=== PATIENT | male | born 1980 | race Caucasian/White ===

== ENCOUNTER 2021-10-05 08:27 | Inpatient (IN) | payer SELFPAY ==
[~2021-10-05] VITALS: Ht 177.8 cm; Wt 92.7 kg
[2021-10-05 09:39] LABS: BASOPHILS % 0.2 % (0.0-2.0); EOSINOPHILS % 0.1 % (0.0-5.0); HEMATOCRIT. 41.3 % (42.0-52.0); HEMOGLOBIN. 14.4 g/dL (14.0-18.0); LYMPHOCYTES % 9.7 % (20.0-50.0); MEAN CORPUSCULAR HEMOGLOBIN 30.3 pg (28.0-32.0); MEAN CORPUSCULAR VOLUME 86.7 fL (80.0-94.0); MEAN PLATELET VOLUME 7.2 fl (7.4-10.4); MONOCYTES % 5.4 % (2.0-8.0); NEUTROPHILS % 84.6 % (40.0-76.0); PLATELET 282 x1000/uL (130-400); RED BLOOD CELL COUNT 4.76 mill/uL (4.7-6.1); RED CELL DISTRIBUTION WIDTH 13.3 % (11.6-14.6)
[2021-10-05 09:43] LABS: CLARITY URINE TURBID (CLEAR); COLOR URINE RED (YELLOW); KETONES URINE NEGATIVE (NEGATIVE); LEUKOCYTE ESTERASE URINE 2+ (NEGATIVE); NITRITE URINE POSITIVE (NEGATIVE); OCCULT BLOOD URINE 2+ (NEGATIVE); PROTEIN URINE 2+ (NEGATIVE); SPECIFIC GRAVITY URINE 1.023 (1.005-1.030); UROBILINOGEN URINE 0.2 E.U./dL (0.2-1.0)
[2021-10-05 09:51] LABS: CHLORIDE 107 mEq/L (98-107)
[2021-10-05] MEDS ORDERED: NITR100C PO (10:33)
[2021-10-05] MEDS ORDERED: ACETAMINOPHEN WITH CODEINE 300/30MG TABLET PO ONE (11:15)
[2021-10-05] MEDS ORDERED: LEVOFLOXACIN 250MG TABLET PO ONE (12:15)
[2021-10-05] MEDS ORDERED: ACETAMINOPHEN 325MG TABLET PO PRN ×2 (14:00)
[2021-10-05] MEDS ORDERED: LEVOFLOXACIN 250MG TABLET PO NR (14:00)
[2021-10-05] MEDS ORDERED: GUAIFENESIN 200MG/10ML SUGAR FREE UDC PO PRN (14:00)
[2021-10-05] MEDS ORDERED: MAGNESIUM/ALUMINUM HYDROXIDE/SIMETHICONE 30ML UDC PO PRN (14:00)
[2021-10-05] MEDS ORDERED: ONDANSETRON HCL 4MG/2ML INJ IV PRN (14:00)
[2021-10-05] MEDS ORDERED: IPRATROPIUM/ALBUTEROL 0.5-3(2.5)MG/3ML NEB NEB PRN (14:00)
[2021-10-05] MEDS ORDERED: ENOXAPARIN 40MG/0.4ML SYR SUBCUT SCH (15:00)
[2021-10-05] MEDS: HYDROCODONE/ACETAMINOPHEN 5/325MG TABLET PO PRN ×3 (15:14→23:53)
[2021-10-05] MEDS: SODIUM CHLORIDE 0.45% 1,000 ML IV SCH ×2 (15:24→21:47)
[2021-10-05 23:15] VITALS: BP 171/103
[2021-10-05] MEDS ORDERED: POTASSIUM CHLORIDE 20MEQ TABLET SR PO NR (23:30)
[2021-10-05] MEDS: CLONIDINE 0.1MG TABLET PO PRN (23:52)
[2021-10-06 04:00] VITALS: BP 146/91
[2021-10-06] MEDS: HYDROCODONE/ACETAMINOPHEN 5/325MG TABLET PO PRN (05:06)
[2021-10-06] MEDS: SODIUM CHLORIDE 0.45% 1,000 ML IV SCH (05:07)
[2021-10-06 07:13] LABS: BASOPHILS % 0.1 % (0.0-2.0); EOSINOPHILS % 0.1 % (0.0-5.0); HEMATOCRIT. 42.7 % (42.0-52.0); HEMOGLOBIN. 14.9 g/dL (14.0-18.0); LYMPHOCYTES % 12.1 % (20.0-50.0); MEAN CORPUSCULAR HEMOGLOBIN 30.2 pg (28.0-32.0); MEAN CORPUSCULAR VOLUME 86.7 fL (80.0-94.0); MEAN PLATELET VOLUME 7.7 fl (7.4-10.4); NEUTROPHILS % 76.7 % (40.0-76.0); PLATELET 258 x1000/uL (130-400); RED BLOOD CELL COUNT 4.92 mill/uL (4.7-6.1); RED CELL DISTRIBUTION WIDTH 13.4 % (11.6-14.6)
[2021-10-06 07:23] LABS: CHLORIDE 102 mEq/L (98-107)
[2021-10-06 07:28] LABS: PHOSPHORUS 3.6 mg/dL (2.5-4.9)
[2021-10-06 08:00] VITALS: BP 162/102
[2021-10-06] MEDS: CLONIDINE 0.1MG TABLET PO PRN (08:40)
[2021-10-06] MEDS: SODIUM CHLORIDE 0.9% 1,000 ML IV SCH ×2 (08:44→13:52)
[2021-10-06] MEDS: KETOROLAC 30MG/ML VIAL IV SCH ×3 (08:47→17:50)
[2021-10-06 12:00] VITALS: BP 144/100
[2021-10-06] MEDS ORDERED: AMLODIPINE 5MG TABLET PO SCH (12:30)
[2021-10-06 12:43] LABS: FOLIC ACID (FOLATE) SERUM 14.7 ng/mL (>5.38)
[2021-10-06] MEDS ORDERED: NALOXONE HCL 0.4MG/ML VIAL IV PRN (13:15)
[2021-10-06] MEDS ORDERED: LEVOFLOXACIN 750MG PREMIX 150 ML IV SCH ×2 (14:00)
[2021-10-06] MEDS ORDERED: AMLO5TAB88 PO (14:28)
[2021-10-06] MEDS ORDERED: LEVO750T46 PO (14:28)
[2021-10-06 15:17] LABS: TOTAL IRON BINDING CAPACITY 438 ug/dL (250-450)
[2021-10-06 16:00] VITALS: BP 136/87
[2021-10-06 17:33] VITALS: BP 136/87
[2021-10-06 17:50] VITALS: BP 136/87
== END 2021-10-06 19:07 | disposition home or self-care (01) | DRG 463 ==
LOC: EDBD 08:27 → ER 08:27 → 7WST 13:16 → SUPCPDRO 13:35 → ENRESERV 22:00 → 7WST 10-06 12:25
PROVIDERS: ADMIT Internal Medicine; ATTEND Internal Medicine
DX: N13.6 Pyonephrosis (principal); D64.9 Anemia, unspecified; F12.90 Cannabis use, unspecified, uncomplicated; F17.210 Nicotine dependence, cigarettes, uncomplicated; D72.829 Elevated white blood cell count, unspecified; Z88.0 Allergy status to penicillin; Z72.89 Other problems related to lifestyle
CPT/HCPCS: 36415; 74176; 76870; 80048; 80053; 81003; 82607; 82728; 82746; 83036; 83540; 83550; 83735; 84100; 84145; 85025; 93976; 99285; J1650; J1885; J1956; J2405; J7030